=== PATIENT | male | born 1945 | race Asian ===

== ENCOUNTER 2019-10-14 18:11 | Emergency (ER) | payer MEDICARE ==
[~2019-10-14] VITALS: Ht 172.7 cm; Wt 88.5 kg
[2019-10-14 18:20] VITALS: BP 168/90
--- NOTE | 2019-10-14 18:20 | NUR ---
ED Nurse Note: Pt ambulated to ED d/t head trauma today. Per pt he was just sleeping at home when he fell on a concrete. Noted head with mild swelling, skin intact; no active bleeding. Per pt, he's taking aspirin. Placed on bed and gown; will continue to monitor.
--- NOTE | 2019-10-14 18:40 | Emergency Room Report ---
History of Present Illness General Chief Complaint: Head Injury Source: Patient Present Illness HPI Disclaimer: Please note that this report is being documented using [employer] technology. This can lead to erroneous entry secondary to incorrect interpretation by the dictating instrument. HPI: 74-year-old male presents for evaluation after head injury. He had a mechanical fall from standing after losing his balance and slipping on concrete. He struck the back of his head and had a loss of consciousness approximately 20 seconds. He woke complaining of a 3/10 headache but denied any change in his vision. He is complaining of right-sided neck pain but denies any midline neck pain. Denies any restriction to range of motion in the neck or extremities. No other injury sustained. Denies any skin breakdown or laceration. He takes 81 mg aspirin daily. Denied any seizure-like activity, vomiting, numbness, tingling or weakness. He originally presented to an urgent care but was directed to the emergency department recommending CT imaging. No other complaints from the patient at this time. No other injury sustained. PMH: Diabetes, hypertension PSH: Reviewed Allergies: Denies Social Hx: Denies Allergies: Coded Allergies: No Known Allergies (Unverified , 10/14/19) Nursing Documentation-PMH Past Medical History: No History, Except For Hx Hypertension: Yes Review of Systems All Other Systems: limited Physical Exam Vital Signs Date Time Temp Pulse Resp B/P (MAP) Pulse Ox O2 Delivery O2 Flow Rate FiO2 10/14/19 18:16 98.4 89 20 168/90 (116) 95 Room Air General: Awake and alert, no acute distress HEENT: Normocephalic. Small scalp hematoma over the occiput. No overlying breakdown or abrasions. No tenderness or soft tissue swelling over the facial bones. EOMI. PERRLA. No septal hematoma. No oral lacerations. Dentition is intact. No malocclusion Neck: Supple, trachea midline. Arrives without cervical collar Chest Wall: No tenderness, no deformity, no crepitus CV: RRR. S1 and S2 normal. No murmur appreciated Resp: Normal work of breathing. No cough, wheezing or crackles appreciated Abd: Soft, nontender, nondistended Skin: Intact. No abrasions, laceration or rash over the exposed skin MSK: Normal tone and bulk. No obvious deformity. Moving all extremities. Ambulating without difficulty. Neuro: Awake and alert. Mentating appropriately. Sensation is intact to light touch over the dermatomes of the upper and lower extremities Spine: There is no tenderness, step-off or deformity in the cervical, thoracic or lumbosacral spine. Paraspinal tenderness on the right side in the cervical region. Medical Decision Making Diagnostic Impression: Primary Impression: Acute head injury Additional Impression: Cervical strain ER Course 74-year-old male presents for evaluation after mechanical fall from standing. He is well-appearing though did have a loss of consciousness approximately 20 seconds without reported seizure activity. He has a hematoma and some right- sided cervical region pain consistent with spasm or strain but cannot rule out cervical spine injury. We will obtain a CT scan of the head and cervical spine to evaluate for significant injury. Pain is currently a 3/10. Do not believe he requires labs at this time. Can advance work-up as needed CT/MRI/US Diagnostic Results CT/MRI/US Diagnostic Results : Impression Preliminary Findings Only See Final Report For Complete Findings CT HEAD Without Contrast: Brain: No hemorrhage, hydrocephalus, mass effect, or herniation. Bones: No acute calvarial fracture. Radiologist: Malina West MD Study ready at 19:04 and initial results transmitted at 19:08 Preliminary Findings Only See Final Report For Complete Findings CT C SPINE: Bones: No acute fracture or subluxation of the cervical spine. Likely chronic mild wedging of T1. Mild spinal canal stenosis at C5-6 and C6-7 secondary to degenerative changes. Soft tissue: No prevertebral soft tissue swelling. Multiple calcified and noncalcified subcentimeter nodules in the right thyroid gland. Upper lungs: Unremarkable. Radiologist: Malina West MD Study ready at 19:14 and initial results transmitted at 19:24 Last Vital Signs Date Time Temp Pulse Resp B/P (MAP) Pulse Ox O2 Delivery O2 Flow Rate FiO2 10/14/19 18:16 98.4 89 20 168/90 (116) 95 Room Air Reevaluation Impression No evidence of acute injury on CT scan of the head. No mass, no bleed. CT scan is surgical and shows some spinal stenosis and a possible old wedge compression but no evidence of acute injury. He is feeling well and comfortable on reevaluation. His son is now present and wants to take the patient home. Stable for outpatient follow-up. Discussed symptoms of concussion and avoidance of any repeat head injury. Discussed reasons to return to the emergency department with patient and his son. They understand agree with the treatment plan will be discharged home. Disposition: HOME, SELF-CARE Condition: Stable Scripts Ibuprofen* (MOTRIN*) 600 Mg Tablet 600 MG ORAL Q8H PRN for For Pain, #30 TAB 0 Refills Prov: Bairon Phan MD 10/14/19 Lidocaine Patch* (Lidoderm Patch*) 1 Each Adh..patch 1 PATCH TOPIC DAILY, #7 PATCH 0 Refills Patch(es) may remain in place for up to 12 hours in any 24-hour period. Prov: Bairon Phan MD 10/14/19 Bairon Phan MD Oct 14, 2019 18:40
--- NOTE | 2019-10-14 18:50 | NUR ---
ED Nurse Note: Pt went on CT.
--- NOTE | 2019-10-14 19:03 | NUR ---
ED Nurse Note: Pt returned from Ct, on stable condition.
--- NOTE | 2019-10-14 19:03 | NUR ---
HAND-OFF: Report given to JEREMIE Johnson.
[2019-10-14 19:05] VITALS: BP 155/78
--- NOTE | 2019-10-14 19:05 | NUR ---
ED Nurse Note: Received report from Trupti CHAO. Pt alert and oriented, verbally responsive. Pt came back from CT, not in any distress.
--- NOTE | 2019-10-14 19:09 | Diagnostic Imaging Report ---
Indication: Headache Technique: Contiguous 5 mm thick transaxial imaging of the head obtained in a Siemens Sensation [address] scanner. Soft tissue and bone windows generated. Automatic Exposure Control was utilized. Total Dose length Product (DLP): [address] Dose Index Volume (CTDIvol): 62.7 mGy Comparison: none Findings: There is mild prominence of the ventricles, basal cisterns, and cerebral sulci consistent with atrophy. Mild, nonspecific, white matter hypoattenuation is noted throughout the brain consistent with chronic small vessel disease. There is no midline shift, edema, acute hemorrhage, mass effect, or abnormal extra-axial fluid collections. Bones are unremarkable. Impression: No acute intracranial bleed, mass effect or edema. Mild atrophy of the brain. Nonspecific white matter hypoattenuation probably due to chronic small vessel disease. [facility] has communicated the preliminary results to the Emergency Department. Their findings are largely concordant with this report. The CT scanner at [facility] is accredited by the [employer] and the scans are performed using dose optimization techniques as appropriate to a performed exam including Automatic Exposure control.
--- NOTE | 2019-10-14 19:24 | Diagnostic Imaging Report ---
Indication: Cervical trauma/pain. Technique: Continuous helical imaging of the cervical spine was obtained transaxially from the skull base to the upper thoracic spine. 2-D coronal and sagittal reformatted images were obtained. Automatic Exposure Control was utilized. Total Dose length Product (DLP): 289.[address] Dose Index Volume (CTDIvol): 9.3 mGy Comparison: None Findings: There is no acute fracture or malalignment identified. There is no soft tissue swelling identified. There is reversal cervical lordosis within the mid to lower cervical spine which may be due to muscle spasm or related to degenerative disease. Moderate uncovertebral arthritis is demonstrated at multiple levels. Some of the intervertebral discs show narrowing and osteophytes especially at C5-6 through C7-T1. There is a posterior paraspinous ligamentous calcification involving the supraspinous ligament. Bones are diffusely osteopenic. Multilevel neural foraminal stenosis demonstrated due to uncovertebral and facet arthropathy.. Impression: No acute injury Moderate spondylosis as described above. [facility] has communicated the preliminary results to the Emergency Department. Their findings are largely concordant with this report. The CT scanner at [facility] is accredited by the [employer] and the scans are performed using dose optimization techniques as appropriate to a performed exam including Automatic Exposure control.
[2019-10-14] MEDS ORDERED: IBUPROFEN600 MG ORAL (19:45)
[2019-10-14] MEDS ORDERED: LIDODERM700 M1 TOPIC (19:45)
[2019-10-14 20:00] VITALS: BP 148/86
--- NOTE | 2019-10-14 20:00 | NUR ---
ED Nurse Note: Pt cleared by ERMD for discharge. DC instructions/prescription was given and explained to pt and verbalized understanding of teachings. All medical deviecs such as ID band removed. Pt is AAO x4, ambulatory and left with all personal belongings. Accompanied by his son.
== END 2019-10-14 20:00 | disposition home or self-care (01) ==
LOC: EMR 19:11
DX: S09.90XA Unspecified injury of head, initial encounter (principal); S16.1XXA Strain of muscle, fascia and tendon at neck level, initial encounter; E11.9 Type 2 diabetes mellitus without complications; I10 Essential (primary) hypertension; W01.0XXA Fall on same level from slipping, tripping and stumbling without subsequent striking against object, initial encounter; Y92.9 Unspecified place or not applicable; Z79.82 Long term (current) use of aspirin
CPT/HCPCS: 70450; 72125; 99284